=== PATIENT | female | born 1985 | race Caucasian/White ===

== ENCOUNTER 2018-04-19 16:31 | Emergency (ER) | payer MEDICAID ==
[2018-04-19 17:21] LABS: BASO % 0.2 % (0-6); EOS % 0.5 % (0-6); GRAN % 67.8 % (47-80); HEMATOCRIT 27.1 % (35.0-47.0); HEMOGLOBIN 8.9 gm/dl (11.6-16.0); LYMPH % 24.8 % (16-45); MEAN CELL VOLUME 78.8 fl (81-97); MEAN CORPUSCULAR HGB CONC 32.8 g/dl (32-36); MEAN PLATELET VOLUME 9.1 fl (7.4-10.4); MONO % 6.7 % (0-9); PLATELET COUNT 446 K/uL (130-400); RED BLOOD COUNT 3.44 M/uL (3.80-5.40); WHITE BLOOD COUNT W/O DIFF 12.6 K/uL (4.2-12.2)
[2018-04-19 17:34] LABS: BLOOD UREA NITROGEN 8 mg/dL (6-20); CREATININE 0.4 mg/dL (0.5-0.9); EST GLOMERULAR FILTRATION RATE > 60 mL/min
[2018-04-19 17:37] LABS: GLUCOSE,RANDOM 80 mg/dL (74-109)
[2018-04-19 17:38] LABS: MEAN CORPUSCULAR HEMOGLOBIN 25.8 pg (27-33); RED CELL DISTRIBUTION WIDTH 21.8 % (11.5-14.5)
--- NOTE | 2018-04-19 18:20 | Emergency Department Record ---
History of Present Illness - General Chief complaint: complication Stated complaint: /HEAVY BLEEDING Time Seen by Provider: 04/19/18 17:12 Source: Patient, RN notes reviewed Mode of Arrival: Ambulatory - History of Present Illness Initial comments: pregnacy and vaginal bleeding and no sex since 10 weeks when she was spoting and preg in [place] and had an US than and some abdominal cramping and the bleeding started about 30 hours ago and like a heavy day of a period. patient states she is taking vitamines Onset/Timin -: Days(s) Radiation: None Quality: Cramping Consistency: Intermittent Improves with: None Worsens with: None Associated symptoms: Denies other symptoms Number of weeks : 13 Pre- care: None - Related Data : 6 Para: 1 Ab: 4 Home Medications Medication Instructions Recorded Confirmed Last Taken No Home Med [NO HOME MEDS] 04/19/18 04/19/18 Unknown Allergies Allergy/AdvReac Type Severity Reaction Status Date / Time ibuprofen Allergy SWELLING Verified 04/19/18 16:50 OF THE FACE Past Medical History - SOCIAL HISTORY Smoking Status: Current every day smoker Alcohol Use: None Drug Use: None - [employer] History : 6 Para: 1 A: 4 - RESPIRATORY Hx Respiratory Disorders: No - CARDIOVASCULAR Hx Cardio Disorders: No - NEURO Hx Neuro Disorders: No - GI Hx GI Disorders: No - Hx Genitourinary Disorders: No - ENDOCRINE Hx Endocrine Disorders: No - MUSCULOSKELETAL Hx Musculoskeletal Disorders: No - PSYCH Hx Psych Problems: No - HEMATOLOGY/ONCOLOGY Hx Hematology/Oncology Disorders: No Family Medical History Any Significant Family History?: No Physical Exam - General General Appearance: Alert, Oriented x3, Cooperative, No acute distress - Head Head exam: Normal inspection - Eye Eye exam: Normal appearance, PERRL Pupils: Normal accommodation - ENT ENT exam: Normal exam, Mucous membranes moist, Normal external ear exam, Normal orophraynx, TM's normal bilaterally Ear exam: Normal external inspection. negative: External canal tenderness Nasal Exam: Normal inspection. negative: Discharge, Sinus tenderness Mouth exam: Normal external inspection, Tongue normal Teeth exam: Normal inspection. negative: Dental caries Throat exam: Normal inspection. negative: Tonsillar erythema, Tonsillar exudate - Neck Neck exam: Normal inspection, Full ROM. negative: Tenderness - Respiratory Respiratory exam: Normal lung sounds bilaterally. negative: Respiratory distress - Cardiovascular Cardiovascular Exam: Regular rate, Normal rhythm, Normal heart sounds - GI/Abdominal GI/Abdominal exam: Soft, Normal bowel sounds. negative: Tenderness - Rectal Rectal exam: Deferred - exam: Deferred, Enlarged uterus, Vaginal bleeding, Other (cervix closed). negative: Adnexal mass (R), Adnexal tenderness (L), Adnexal tenderness (R) - Extremities Extremities exam: Normal inspection, Full ROM, Normal capillary refill. negative: Tenderness - Back Back exam: Reports: Normal inspection, Full ROM. Denies: Muscle spasm, Rash noted, Tenderness - Neurological Neurological exam: Alert, Normal gait, Oriented X3, Reflexes normal - Psychiatric Psychiatric exam: Normal affect, Normal mood - Skin Skin exam: Dry, Intact, Normal color, Warm Course Vital Signs 04/19/18 16:43 Temperature 98.3 F Pulse Rate 87 Respiratory 20 Rate Blood Pressure 126/75 Pulse Ox 98 Medical Decision Making - Data Complexity MDM Data: Labs Ordered and/or Reviewed (hg 8.9), X-Ray Ordered and/or Reviewed ( US viable baby , with heart tones ) - Lab Data Result diagrams: 04/19/18 17:10 04/19/18 16:57 Lab Results 04/19/18 04/19/18 04/19/18 Range/Units 16:57 17:10 17:10 WBC 12.6 H (4.2-12.2) K/uL RBC 3.44 L (3.80-5.40) M/uL Hgb 8.9 L (11.6-16.0) gm/dl Hct 27.1 L (35.0-47.0) % MCV 78.8 L (81-97) fl MCH 25.8 L (27-33) pg MCHC 32.8 (32-36) g/dl RDW 21.8 H (11.5-14.5) % Plt Count 446 H (130-400) K/uL MPV 9.1 (7.4-10.4) fl Gran % 67.8 (47-80) % Lymphocytes % 24.8 (16-45) % Monocytes % 6.7 (0-9) % Eosinophils % 0.5 (0-6) % Basophils % 0.2 (0-6) % Sodium 136 (136-145) mmol/L Potassium 3.4 (3.4-4.5) mmol/L Chloride 105 (98-107) mmol/L Carbon Dioxide 20.0 L (22-29) mmol/L Anion Gap 11.0 (7-16) BUN 8 (6-20) mg/dL Creatinine 0.4 L (0.5-0.9) mg/dL Estimated GFR > 60 mL/min Random Glucose 80 (74-109) mg/dL Calcium 9.0 (8.6-10.0) mg/dL Serum HCG, Qual (NEGATIVE) Rh Factor Positive 04/19/18 Range/Units 17:10 WBC (4.2-12.2) K/uL RBC (3.80-5.40) M/uL Hgb (11.6-16.0) gm/dl Hct (35.0-47.0) % MCV (81-97) fl MCH (27-33) pg MCHC (32-36) g/dl RDW (11.5-14.5) % Plt Count (130-400) K/uL MPV (7.4-10.4) fl Gran % (47-80) % Lymphocytes % (16-45) % Monocytes % (0-9) % Eosinophils % (0-6) % Basophils % (0-6) % Sodium (136-145) mmol/L Potassium (3.4-4.5) mmol/L Chloride (98-107) mmol/L Carbon Dioxide (22-29) mmol/L Anion Gap (7-16) BUN (6-20) mg/dL Creatinine (0.5-0.9) mg/dL Estimated GFR mL/min Random Glucose (74-109) mg/dL Calcium (8.6-10.0) mg/dL Serum HCG, Qual Positive H (NEGATIVE) Rh Factor Disposition Clinical Impression: Vaginal bleeding, Threatened miscarriage Qualifiers: Weeks of gestation: 13 weeks Qualified Code(s): Z3A.13 - 13 weeks gestation of Instructions: Threatened Miscarriage (ED) Additional Instructions: follow up with Dr. Souza [phone] in 1- 5 days if more vaginal bleeding go to [facility] ED Forms: Patient Portal Access Time of Disposition: 19:02 Quality - Quality Measures Quality Measures: (14-50yr) - : US Determination Quality Measure: Measure #254: US Determination of Location US Determination of Location: < Trans-Abdominal or Trans-Vaginal US Performed > [G8806] - : Rhogam Quality Measure: Measure #255: Rhogam for Rh-Negative Women ICD10 Codes Entered: Yes Rhogam for Rh-Negative Women at Risk: < Rh-immunoglobulin (Rhogam) Ordered > [G8809] - Blood Pressure Screening Does Patient Have Any of the Following: No Blood Pressure Classification: Pre-Hypertensive BP Reading Systolic Measurement: 126 Diastolic Measurement: 75 Screening for High Blood Pressure: < Pre-Hypertensive BP, F/U Documented > [ G8950] Pre-Hypertensive Follow-up Interventions: Referral to alternative/primary care provider.
[2018-04-19 18:41] LABS: URINE APPEARANCE CLEAR; URINE BILIRUBIN NEGATIVE (NEGATIVE); URINE BLOOD MODERATE (NEGATIVE); URINE COLOR YELLOW; URINE GLUCOSE (UA) NEGATIVE (NEGATIVE); URINE KETONE 15 mg/dL (NEGATIVE); URINE LEUKOCYTE ESTERASE TRACE (NEGATIVE); URINE NITRITE NEGATIVE (NEGATIVE); URINE PROTEIN NEGATIVE (NEGATIVE); URINE UROBILINOGEN 0.2 E.U./dL (0.20 - 1.00)
[2018-04-19 18:42] LABS: HCG,QUALITATIVE URINE POSITIVE (NEGATIVE)
[2018-04-19 18:48] LABS: URINE BACTERIA FEW
== END 2018-04-19 19:19 | disposition home or self-care (01) ==
LOC: ER 16:31
DX: O20.0 Threatened abortion (principal); O99.331 Smoking (tobacco) complicating pregnancy, first trimester; F17.210 Nicotine dependence, cigarettes, uncomplicated; Z3A.13 13 weeks gestation of pregnancy
CPT/HCPCS: 99283; 99284; 85025; 84702; 80048; 81001; 84703; 81025; 86901; 76817; 76801; Q0111; 87210